=== PATIENT | male | born 1960 | race Caucasian/White ===

== ENCOUNTER 2018-11-09 13:36 | Inpatient (IN) | payer MEDICAID ==
[2018-11-09] MEDS: ONDANSETRON 4 MG INJ IV (14:15)
[2018-11-09] MEDS: morphine 4 MG/ML VIAL IV (14:16)
[2018-11-09 14:17] LABS: ADD MAN DIFF? NO
[2018-11-09 14:21] LABS: BASOPHILS % 0.5 % (0.0-2.0); EOSINOPHILS % 0.3 % (0.0-7.0); HEMATOCRIT 44.1 % (42.0-52.0); HEMOGLOBIN 15.4 g/dl (14.0-18.0); LYMPHOCYTES # 3.2 10^3/ul (0.8-2.9); LYMPHOCYTES % 37.2 % (15.0-51.0); MEAN CORPUSCULAR HEMOGLOBIN 31.3 pg (29.0-33.0); MEAN CORPUSCULAR HGB CONC 34.9 g/dl (32.0-37.0); MEAN CORPUSCULAR VOLUME 89.6 fl (82.0-101.0); MEAN PLATELET VOLUME 9.3 fl (7.4-10.4); MONOCYTE # 0.6 10^3/ul (0.3-0.9); MONOCYTES % 6.5 % (0.0-11.0); NEUTROPHIL # 4.7 10^3/ul (1.6-7.5); NEUTROPHILS % 54.9 % (39.0-77.0); PLATELET COUNT 291 10^3/UL (140-415); RED BLOOD COUNT 4.92 10^6/ul (4.70-6.10); RED CELL DISTRIBUTION WIDTH 12.5 % (11.5-14.5)
[2018-11-09 14:21] LABS: WHITE BLOOD COUNT 8.6 10^3/ul (4.8-10.8)
[2018-11-09 15:18] LABS: PARTIAL THROMBOPLASTIN TIME 29.1 Sec (23.0-35.0); PROTIME 12.3 Sec (11.9-14.9)
[2018-11-09 15:28] LABS: ANION GAP 14 (5-13); BLOOD UREA NITROGEN 13 mg/dl (7-20); CALCIUM 9.1 mg/dl (8.4-10.2); CARBON DIOXIDE 22 mmol/L (21-31); CHLORIDE 105 mmol/L (97-110); CREATININE 0.89 mg/dl (0.61-1.24); Estimated GFR > 60 mL/min (>60); GLUCOSE 126 mg/dl (70-220); POTASSIUM 4.4 mmol/L (3.5-5.1); SODIUM 141 mmol/L (135-144)
[2018-11-09 15:37] LABS: TROPONIN-I < 0.012 ng/ml (0.000-0.120)
[2018-11-09] MEDS ORDERED: ACETAMINOPHEN 325 MG TAB PO ×2 (16:00)
[2018-11-09] MEDS ORDERED: ONDANSETRON 4 MG INJ IV ×2 (16:00)
[2018-11-09] MEDS ORDERED: NACL 0.9% 3 ML SYG IV (16:00)
[2018-11-09] MEDS: SOD CHLORIDE 0.9% 1,000 ML IV (16:22)
[2018-11-09] MEDS: morphine 2 MG INJ IV (16:31)
[2018-11-09] MEDS ORDERED: THIAMINE 200 MG INJ IV (17:00)
[2018-11-09] MEDS: FAMOTIDINE 20 MG INJ IV (19:05)
[2018-11-09] MEDS: THIAMINE 100 MG in SOD CHLORIDE 0.9% 100 ML IV (20:53)
[2018-11-10] MEDS: SOD CHLORIDE 0.9% 1,000 ML IV ×2 (01:43→03:39)
[2018-11-10] MEDS: OXYCODONE/ACETAMINOPHEN (5/325) TAB PO ×3 (03:29→14:48)
[2018-11-10 08:26] LABS: ADD MAN DIFF? NO; BASOPHILS % 0.5 % (0.0-2.0); EOSINOPHILS % 0.4 % (0.0-7.0); HEMATOCRIT 41.8 % (42.0-52.0); HEMOGLOBIN 14.3 g/dl (14.0-18.0); LYMPHOCYTES # 2.2 10^3/ul (0.8-2.9); MEAN CORPUSCULAR HEMOGLOBIN 31.3 pg (29.0-33.0); MEAN CORPUSCULAR HGB CONC 34.2 g/dl (32.0-37.0); MEAN CORPUSCULAR VOLUME 91.5 fl (82.0-101.0); MEAN PLATELET VOLUME 9.4 fl (7.4-10.4); MONOCYTE # 1.1 10^3/ul (0.3-0.9); NEUTROPHIL # 5.1 10^3/ul (1.6-7.5); NEUTROPHILS % 59.9 % (39.0-77.0); PLATELET COUNT 255 10^3/UL (140-415); RED BLOOD COUNT 4.57 10^6/ul (4.70-6.10); RED CELL DISTRIBUTION WIDTH 12.4 % (11.5-14.5)
[2018-11-10 08:26] LABS: WHITE BLOOD COUNT 8.4 10^3/ul (4.8-10.8)
[2018-11-10] MEDS: FAMOTIDINE 20 MG INJ IV (08:44)
[2018-11-10] MEDS: DOCUSATE SODIUM 100 MG CAP PO (08:46)
[2018-11-10 08:57] LABS: ALANINE AMINOTRANSFERASE 63 IU/L (13-69); ALBUMIN 3.9 g/dl (3.3-4.9); ALBUMIN/GLOBULIN RATIO 1.11; ALKALINE PHOSPHATASE 60 IU/L (42-121); ANION GAP 9 (5-13); ASPARTATE AMINO TRANSFERASE 61 IU/L (15-46); BILIRUBIN,INDIRECT 0.7 mg/dl (0-1.1); BILIRUBIN,TOTAL 0.7 mg/dl (0.2-1.3); BLOOD UREA NITROGEN 15 mg/dl (7-20); CALCIUM 8.9 mg/dl (8.4-10.2); CARBON DIOXIDE 25 mmol/L (21-31); CHLORIDE 104 mmol/L (97-110); CREATININE 0.89 mg/dl (0.61-1.24); Estimated GFR > 60 mL/min (>60); GLUCOSE 120 mg/dl (70-220); PHOSPHORUS 3.8 mg/dl (2.5-4.9); POTASSIUM 4.3 mmol/L (3.5-5.1); SODIUM 138 mmol/L (135-144); TOTAL PROTEIN 7.4 g/dl (6.1-8.1)
[2018-11-10] MEDS: morphine 2 MG INJ IV ×4 (10:35→23:04)
[2018-11-10] MEDS: HYDROCODONE/APAP (10/325) TAB PO ×2 (15:31→21:58)
[2018-11-11] MEDS: HYDROCODONE/APAP (10/325) TAB PO ×3 (05:54→18:58)
[2018-11-11] MEDS: MAGNESIUM HYDROXIDE 30ML CUP PO (05:54)
[2018-11-11] MEDS: FAMOTIDINE 20 MG INJ IV (09:10)
[2018-11-11] MEDS: morphine 2 MG INJ IV ×2 (09:13→15:21)
[2018-11-11] MEDS: DOCUSATE SODIUM 100 MG CAP PO (15:21)
[2018-11-11] MEDS: BISACODYL (EC) 5 MG TAB PO (15:21)
[2018-11-11] MEDS ORDERED: morphine 2 MG INJ IV (17:30)
[2018-11-12] MEDS ORDERED: THIAMINE 100 MG TAB PO (09:00)
[2018-11-14 20:17] LABS: NIL 0.13 IU/mL; QUANTIFERON(R)-TB GOLD POSITIVE (NEGATIVE); TB-NIL 0.01 IU/mL; TB2-NIL 0.43 IU/mL
== END 2018-11-11 19:05 | disposition home or self-care (01) | DRG 563 ==
LOC: E/R 13:36 → MS1 15:32
PROVIDERS: Internal Medicine
PROC: 2W38X3Z Immobilization of Right Upper Extremity using Brace (ICD-10-PCS; principal; 2018-11-09)
DX: S42.331A Displaced oblique fracture of shaft of humerus, right arm, initial encounter for closed fracture (principal); W11.XXXA Fall on and from ladder, initial encounter; Y93.H2 Activity, gardening and landscaping; F10.129 Alcohol abuse with intoxication, unspecified; M25.531 Pain in right wrist; F32.9 Major depressive disorder, single episode, unspecified
CPT/HCPCS: 71045; 73060-RT; 73100; 80048; 80053; 83036; 83735; 84100; 84443; 84484; 85025; 85610; 85730; 86480; 93005; 93306; 96374; 96375; 97116; 97161; 97530; 99285-25